=== PATIENT | female | born 1940 | race Caucasian/White ===

== ENCOUNTER → 2016-09-13 | Outpatient (CLI) | payer MEDICARE ==
--- NOTE | 2016-09-13 14:43 | REP ---
REASON: Low back pain. COMPARISON: None. There is partial syndesmophyte formation seen at every level bilaterally, but particularly L3-4 and L4-5. There is a grade 3 biconcave endplate deformity involving L3 with a superior endplate concave deformity seen involving L4 and L5 grade 1 and grade 2 respectively. Degenerative facet joint changes are seen at every level bilaterally. There is grade 1 L5 upon S1 spondylolisthesis. Due to the improper degree of obliquity obtained on the oblique views I cannot accurately assess for spondylolysis. I suspect the slight spondylolisthesis is secondary to degenerative facet joint change. The bones are demineralized. There is anterior lipping at every level. IMPRESSION: Chronic changes as described above. The age of the endplate compression fractures cannot be determined by this plain film exam. MRI would be necessary to search for marrow edema. Signed by Joshua Figueroa DO 09/14/2016 11:29 A
== END ==
LOC: M RAD 12:22
PROVIDERS: ATTEND Internal Medicine
DX: M25.78 Osteophyte, vertebrae (principal); M12.89 Other specific arthropathies, not elsewhere classified, multiple sites; M43.16 Spondylolisthesis, lumbar region; M54.5 Low back pain

== ENCOUNTER 2017-02-24 20:07 | Inpatient (IN) | payer MEDICARE ==
[2017-02-24 21:42] LABS: BASO % 0.1 % (0.0-1.0); EOS % 0.1 % (0.0-3.0); HEMATOCRIT 36.7 % (36.0-47.0); HEMOGLOBIN 12.4 g/dl (12.0-16.0); IMMATURE GRANULOCYTE % 0.4 % (0-0); LYMPH # 0.7 10^3/uL (1.5-4.5); LYMPH % 9.4 % (24.0-44.0); MEAN CORPUSCULAR HEMOGLOBIN 34.3 pg (27.0-33.0); MEAN CORPUSCULAR HGB CONC 33.8 g/dl (32.0-36.5); MEAN CORPUSCULAR VOLUME 101.4 fl (80.0-96.0); MONO # 0.5 10^3/uL (0.0-0.8); MONO % 6.3 % (0.0-5.0); NEUTROPHILS # 6.4 10^3/uL (1.8-7.7); NEUTROPHILS % 83.7 % (36.0-66.0); PLATELET COUNT, AUTOMATED 311 10^3/uL (150-450); RED BLOOD COUNT 3.62 10^6/uL (4.00-5.40); WHITE BLOOD COUNT 7.6 10^3/uL (4.0-10.0)
[2017-02-24 21:45] LABS: KETONE, URINE AUTO RFX TRACE mg/dL (NEGATIVE); MUCUS, URINE RFX SMALL (NEGATIVE); NITRITE, URINE AUTO RFX NEGATIVE (NEGATIVE); RBC, URINE AUTO RFX 3 /HPF (0-3); SPECIFIC GRAVITY UR AUTO RFX 1.021 (1.002-1.035); SQUAM EPITHELIAL CELL UR AURFX 0 /HPF (0-6); WBC, URINE AUTO RFX 2 /HPF (0-3)
[2017-02-24 21:46] LABS: LEUKOCYTE ESTERASE UR AUTO RFX TRACE (NEGATIVE)
[2017-02-24] MEDS: ONDANSETRON 4MG/2ML VIAL (J2405) IV (21:54)
[2017-02-24] MEDS: MORPHINE 2 MG/ML 1ML SYRINGE IV (21:54)
[2017-02-24 22:06] LABS: ANION GAP 10 MEQ/L (8-16); BLOOD UREA NITROGEN 34 MG/DL (7-18); CALCIUM LEVEL 10.4 MG/DL (8.8-10.2); CARBON DIOXIDE LEVEL 23 MEQ/L (21-32); CHLORIDE LEVEL 108 MEQ/L (98-107); CREATININE FOR GFR 1.48 MG/DL (0.55-1.02); GLOMERULAR FILTRATION RATE 36.3 (>39); GLUCOSE, FASTING 107 MG/DL (83-110); POTASSIUM SERUM 4.9 MEQ/L (3.5-5.1); SODIUM LEVEL 141 MEQ/L (136-145)
[2017-02-24] MEDS: NS 1,000 ML IV (23:33)
[2017-02-24] MEDS: LR 1,000 ML IV (23:47)
[2017-02-25] MEDS ORDERED: NORCO, ANEXSIA 5/325MG TABLET (HYDROcodone/ACETAMINOPHEN) PO
[2017-02-25] MEDS: MORPHINE 4 MG/ML 1ML SYRINGE IV ×4 (00:29→12:51)
[2017-02-25] MEDS ORDERED: ROCURONIUM BROMIDE 50 MG/5 ML VIAL As Ordered (09:04)
[2017-02-25] MEDS ORDERED: fentaNYL 250 MCG/5 ML INJECTION (J3010) As Ordered (09:04)
[2017-02-25] MEDS ORDERED: PROPOFOL 200 MG/20 ML VIAL As Ordered (09:04)
[2017-02-25] MEDS ORDERED: LIDOCAINE 2% INJ 100 MG/5 ML SDV (FOR ANES.) As Ordered (09:04)
[2017-02-25] MEDS ORDERED: MIDAZOLAM INJ 2 MG/2 ML VIAL (J2250) As Ordered (09:05)
[2017-02-25] MEDS ORDERED: PHENYLephrine HCL 500 MCG/5 ML (100MCG/ML) SYRINGE (J2370) As Ordered ×2 (10:06→11:44)
[2017-02-25] MEDS: BUPIVACAINE HCL 0.25% 30 ML VIAL As Ordered (10:15)
[2017-02-25] MEDS: ceFAZolin 2 GM/D5W 50 ML IV BAG (J0690 PER 500MG) As Ordered (10:15)
[2017-02-25] MEDS: LIDOCAINE 1% SDV INJ 30 ML VIAL As Ordered (10:44)
[2017-02-25] MEDS ORDERED: ONDANSETRON 4MG/2ML VIAL (J2405) As Ordered (11:09)
[2017-02-25] MEDS ORDERED: NEOSTIGMINE 10 MG/10 ML VIAL (J2710) As Ordered (11:09)
[2017-02-25] MEDS ORDERED: GLYCOPYRROLATE INJ 0.2 MG/ML 2 ML VIAL As Ordered (11:09)
[2017-02-25] MEDS ORDERED: ePHEDrine SULFATE 25 MG/5 ML(5MG/ML) SYRINGE As Ordered ×2 (11:44)
[2017-02-25] MEDS ORDERED: SUCCINYLCHOLINE 100 MG/5 ML SYRINGE (J0330) As Ordered (11:45)
[2017-02-25] MEDS ORDERED: fentaNYL 100 MCG/2 ML INJECTION (J3010) IV (12:00)
[2017-02-25] MEDS: LR 1,000 ML IV ×5 (12:00→20:19)
[2017-02-25] MEDS ORDERED: ONDANSETRON 4MG/2ML VIAL (J2405) IV (12:00)
[2017-02-25] MEDS: ATORVASTATIN 10 MG TAB PO (13:38)
[2017-02-25] MEDS: MULTIVITAMINS/MINERALS THERAP 1 TAB PO (13:38)
[2017-02-25] MEDS: ENOXAPARIN 30 MG/0.3 ML SYR (J1650) SC (17:12)
[2017-02-25] MEDS: LR 500 ML IV (17:28)
[2017-02-25] MEDS: CEPACOL LOZENGE PO (18:02)
[2017-02-26] MEDS: LR 1,000 ML IV (04:59)
[2017-02-26 05:42] LABS: HEMATOCRIT 28.5 % (36.0-47.0); MEAN CORPUSCULAR HEMOGLOBIN 33.6 pg (27.0-33.0); MEAN CORPUSCULAR HGB CONC 33.7 g/dl (32.0-36.5); MEAN CORPUSCULAR VOLUME 99.7 fl (80.0-96.0); PLATELET COUNT, AUTOMATED 242 10^3/uL (150-450); RED BLOOD COUNT 2.86 10^6/uL (4.00-5.40)
[2017-02-26 05:57] LABS: ANION GAP 6 MEQ/L (8-16); BLOOD UREA NITROGEN 19 MG/DL (7-18); CALCIUM LEVEL 8.5 MG/DL (8.8-10.2); CARBON DIOXIDE LEVEL 26 MEQ/L (21-32); CHLORIDE LEVEL 110 MEQ/L (98-107); CREATININE FOR GFR 0.98 MG/DL (0.55-1.02); GLOMERULAR FILTRATION RATE 58.4 (>39); GLUCOSE, FASTING 92 MG/DL (83-110); POTASSIUM SERUM 4.3 MEQ/L (3.5-5.1); SODIUM LEVEL 142 MEQ/L (136-145)
[2017-02-26 06:01] LABS: HEMOGLOBIN 9.6 g/dl (12.0-16.0)
[2017-02-26] MEDS: ATORVASTATIN 10 MG TAB PO (08:56)
[2017-02-26] MEDS: MULTIVITAMINS/MINERALS THERAP 1 TAB PO (08:56)
[2017-02-26] MEDS: NORCO, ANEXSIA 5/325MG TABLET (HYDROcodone/ACETAMINOPHEN) PO (08:57)
[2017-02-26] MEDS: ENOXAPARIN 30 MG/0.3 ML SYR (J1650) SC (08:57)
[2017-02-26] MEDS: INFLUENZA VIRUS VACCINE HIGH DOSE 0.5 ML SYRINGE (90662) IM (12:19)
[2017-02-27] MEDS: ACETAMINOPHEN TAB 650MG DOSE (2X325MG) PO (05:06)
[2017-02-27] MEDS: MULTIVITAMINS/MINERALS THERAP 1 TAB PO (08:11)
[2017-02-27] MEDS: ATORVASTATIN 10 MG TAB PO (08:11)
[2017-02-27] MEDS: ENOXAPARIN 30 MG/0.3 ML SYR (J1650) SC (08:12)
== END 2017-02-27 10:30 | disposition home or self-care (01) | DRG 352 ==
LOC: M ED INP 23:47 → M ED 20:07 → M MSPAV 02-25 12:36
PROC: 0YQ70ZZ Repair Right Femoral Region, Open Approach (ICD-10-PCS; principal; 2017-02-25 07:44)
DX: K41.30 Unilateral femoral hernia, with obstruction, without gangrene, not specified as recurrent (principal); I10 Essential (primary) hypertension; E78.00 Pure hypercholesterolemia, unspecified; Z79.899 Other long term (current) drug therapy

== ENCOUNTER → 2017-04-06 | Outpatient (CLI) | payer MEDICARE | LOC: M RAD 14:16 | DX: L76.34 Postprocedural seroma of skin and subcutaneous tissue following other procedure (principal); K41.90 Unilateral femoral hernia, without obstruction or gangrene, not specified as recurrent | CPT/HCPCS: 76857 ==

== ENCOUNTER 2017-07-01 18:32 | Emergency (ER) | payer MEDICARE ==
[2017-07-01] MEDS: GABAPENTIN 300 MG CAP PO (18:44)
== END 2017-07-01 19:55 | disposition home or self-care (01) ==
LOC: M ED 18:32
DX: M79.604 Pain in right leg (principal); M79.605 Pain in left leg; R21 Rash and other nonspecific skin eruption; I10 Essential (primary) hypertension; M54.5 Low back pain; M19.90 Unspecified osteoarthritis, unspecified site; Z79.899 Other long term (current) drug therapy
CPT/HCPCS: 93971

== ENCOUNTER → 2020-04-21 | Outpatient (CLI) | payer MEDICARE ==
[~2020-04-21] MED LIST: ACET650T61 PO; ATOR1TAB19; CALC1TAB30 PO; GABA-1171 PO; LISI10TA15 PO; LISINOP/HCTZ; TRAM50TA2 PO; VITMTA PO
--- NOTE | 2020-04-21 10:00 | REPMRS ---
Patient History The patient states she has not had a clinical breast exam in over a year. Patient is postmenopausal. Family history of breast cancer at age 57 in daughter, breast cancer at age 50 or over in brother. Digital Woman Screen Mammo: April 21, 2020 - Exam #: [id number] Bilateral CC and MLO view(s) were taken. Technologist: Snehal Duran, Technologist Prior study comparison: 2019, bilateral digital mammo screening bilat, performed at [facility]. March 29, 2018, bilateral digital mammo screening bilat, performed at [facility]. March 12, 2016, bilateral digital mammo screening bilat, performed at [facility]. FINDINGS: There are scattered fibroglandular densities. The Volpara volumetric breast density category is:B. There has been no change in the appearance of the mammogram from the prior studies. There is a mild amount of scattered fibroglandular density which is fairly symmetric. There is no interval development of dominant mass, architectural distortion, or grouped microcalcification suggestive of malignancy. 3-D tomosynthesis shows no additional findings. Assessment: BI-RADS/ACR category 1 mammogram. Negative Mammogram. Recommendation Routine screening mammogram of both breasts in 1 year (for women over age 40). This patient's [facility] Lifetime Breast Cancer Risk is estimated at 2.9 %. This mammogram was interpreted with the aid of an FDA-approved computer-aided dectection system. Electronically Signed By: Amrit Talbert MD 04/21/20 1000
== END ==
LOC: M WHC 09:07
PROVIDERS: ATTEND Internal Medicine
DX: Z12.31 Encounter for screening mammogram for malignant neoplasm of breast (principal)

== ENCOUNTER → 2021-06-12 | Outpatient (CLI) | payer MEDICARE ==
[~2021-06-12] MED LIST changes: -LISI10TA15 PO; +LISI10TA24 PO
[2021-06-12 12:52] LABS: BASO % 0.3 % (0.0-1.0); EOS # 0.4 10^3/uL (0.0-0.5); EOS % 6.5 % (0.0-3.0); HEMOGLOBIN 12.7 g/dl (12.0-15.5); LYMPH # 1.3 10^3/uL (1.5-5.0); LYMPH % 23.4 % (24.0-44.0); MEAN CORPUSCULAR HEMOGLOBIN 32.6 pg (27.0-33.0); MEAN CORPUSCULAR HGB CONC 32.6 g/dl (32.0-36.5); MONO # 0.6 10^3/uL (0.0-0.8); MONO % 10.8 % (2.0-8.0); NEUTROPHILS # 3.4 10^3/uL (1.5-8.5); NEUTROPHILS % 58.7 % (36.0-66.0); PLATELET COUNT, AUTOMATED 260 10^3/uL (150-450); WHITE BLOOD COUNT 5.7 10^3/uL (4.0-10.0)
[2021-06-12 13:34] LABS: ALBUMIN 3.2 GM/DL (3.2-5.2); ALT/SGPT 24 U/L (12-78); BILIRUBIN,TOTAL 0.5 MG/DL (0.2-1.0); BLOOD UREA NITROGEN 31 MG/DL (7-18); CALCIUM LEVEL 9.3 MG/DL (8.8-10.2); CARBON DIOXIDE LEVEL 33 MEQ/L (21-32); CHLORIDE LEVEL 104 MEQ/L (98-107); CREATININE FOR GFR 1.36 MG/DL (0.55-1.30); FOLATE 9.2 NG/ML; GLOMERULAR FILTRATION RATE 39.5 (>32); GLUCOSE, FASTING 86 MG/DL (70-100); POTASSIUM SERUM 4.3 MEQ/L (3.5-5.1); SODIUM LEVEL 142 MEQ/L (136-145); TOTAL 25(OH) VITAMIN D 76.1 NG/ML (30.0-100.0); VALPROIC ACID (DEPAKOTE) 67.5 UG/ML (50.0-100.0); VITAMIN B12 LEVEL > 2000 PG/ML
== END ==
LOC: M ADAMS 10:27
PROVIDERS: ATTEND Psychiatry & Neurology Neurology
DX: E53.8 Deficiency of other specified B group vitamins (principal); R51.9 Headache, unspecified; F02.81 Dementia in other diseases classified elsewhere, unspecified severity, with behavioral disturbance

== ENCOUNTER → 2021-07-27 | Outpatient (CLI) | payer MEDICARE | LOC: M WHC 11:34 | PROVIDERS: ATTEND Internal Medicine | DX: Z12.31 Encounter for screening mammogram for malignant neoplasm of breast (principal) ==

== ENCOUNTER 2022-04-17 12:33 | Emergency (ER) | payer MEDICARE ==
[~2022-04-17] VITALS: Ht 160 cm; Wt 52.3 kg
[2022-04-17 13:41] LABS: VENOUS BASE EXCESS 3.6 (-2.0-2.0); VENOUS HCO3 29.8 MEQ/L (23.0-27.0); VENOUS O2 SATURATION 68.1 % (60.0-80.0); VENOUS PARTIAL PRESSURE CO2 51.1 mmHg (38.0-50.0); VENOUS PARTIAL PRESSURE O2 36.9 mmHg (30.0-50.0); VENOUS PH 7.383 UNITS (7.330-7.430); VENOUS STANDARD HCO3 26.9 MEQ/L; VENOUS TOTAL CO2 31.3 MEQ/L (24.0-28.0)
[2022-04-17 13:45] LABS: BASO % 0.4 % (0.0-1.0); EOS # 0.2 10^3/uL (0.0-0.5); EOS % 3.5 % (0.0-3.0); HEMATOCRIT 41.2 % (36.0-47.0); HEMOGLOBIN 13.4 g/dl (12.0-15.5); LYMPH % 19.3 % (24.0-44.0); MEAN CORPUSCULAR HEMOGLOBIN 32.6 pg (27.0-33.0); MEAN CORPUSCULAR HGB CONC 32.5 g/dl (32.0-36.5); MEAN CORPUSCULAR VOLUME 100.2 fl (80.0-96.0); MONO # 0.6 10^3/uL (0.0-0.8); MONO % 11.4 % (2.0-8.0); NEUTROPHILS # 3.4 10^3/uL (1.5-8.5); PLATELET COUNT, AUTOMATED 210 10^3/uL (150-450); RED BLOOD COUNT 4.11 10^6/uL (4.00-5.40); WHITE BLOOD COUNT 5.2 10^3/uL (4.0-10.0)
[2022-04-17 14:14] LABS: ALBUMIN 2.7 G/DL (3.2-5.2); BILIRUBIN,DIRECT 0.2 MG/DL (<0.4); BILIRUBIN,TOTAL 0.4 MG/DL (0.3-1.2); GLOMERULAR FILTRATION RATE 56.2 (>32); POTASSIUM SERUM 4.2 MMOL/L (3.5-5.1); THYROID STIMULATING HORMONE 0.708 uIU/ML (0.55-4.78); TOTAL PROTEIN 6.3 G/DL (5.7-8.2)
[2022-04-17] MEDS ORDERED: NS 500 ML IV ONE (14:50)
[2022-04-17] MEDS ORDERED: OMEP-173 (15:37)
[2022-04-17] MEDS ORDERED: DIVA250T67 (15:37)
[2022-04-17] MEDS ORDERED: OLAN2.5T25 (15:37)
[2022-04-17] MEDS ORDERED: MEMA10TA19 (15:37)
[2022-04-17] MEDS ORDERED: ACETAMINOPHEN 325MG/10.15ML UDC PO ONE (15:45)
[2022-04-17] MEDS ORDERED: LIDOCAINE 2% 5ML JELLY UROJET TOP ONE (16:35)
[2022-04-17 17:30] VITALS: BP 113/58
== END 2022-04-17 17:59 | disposition home or self-care (01) ==
LOC: M ED 12:33
DX: E86.0 Dehydration (principal); F03.90 Unspecified dementia, unspecified severity, without behavioral disturbance, psychotic disturbance, mood disturbance, and anxiety; I10 Essential (primary) hypertension; E78.5 Hyperlipidemia, unspecified; Z79.899 Other long term (current) drug therapy

== ENCOUNTER → 2022-06-23 | Outpatient (CLI) | payer MEDICARE, MEDICAID ==
[~2022-06-23] MED LIST changes: +DIVA250T67; +MEMA10TA19; +OLAN2.5T25; +OMEP-173
[2022-06-23 14:33] LABS: HEMATOCRIT 39.1 % (36.0-47.0); MEAN CORPUSCULAR HEMOGLOBIN 33.7 pg (27.0-33.0); MEAN CORPUSCULAR HGB CONC 33.2 g/dl (32.0-36.5); MEAN CORPUSCULAR VOLUME 101.3 fl (80.0-96.0); PLATELET COUNT, AUTOMATED 345 10^3/uL (150-450); RED BLOOD COUNT 3.86 10^6/uL (4.00-5.40)
[2022-06-23 15:04] LABS: ALBUMIN 2.6 G/DL (3.2-5.2); BILIRUBIN,TOTAL 0.3 MG/DL (0.3-1.2); CALCIUM LEVEL 9.5 MG/DL (8.3-10.6); CHOLESTEROL RISK RATIO 2.63 (<5); CREATININE FOR GFR 0.96 MG/DL (0.55-1.30); GLOMERULAR FILTRATION RATE 58.9 (>32); HDL CHOLESTEROL 55.1 MG/DL (>40); LDL CHOLESTEROL 54.9 MG/DL (<100); NON-HDL-C 89.9 MG/DL; POTASSIUM SERUM 3.8 MMOL/L (3.5-5.1); TOTAL PROTEIN 6.6 G/DL (5.7-8.2)
[2022-06-23 15:05] LABS: THYROID STIMULATING HORMONE 0.568 uIU/ML (0.55-4.78)
== END ==
LOC: M LAB 12:52
PROVIDERS: ATTEND Internal Medicine
DX: R63.4 Abnormal weight loss (principal); E78.5 Hyperlipidemia, unspecified; R51.9 Headache, unspecified; Z51.81 Encounter for therapeutic drug level monitoring; Z79.899 Other long term (current) drug therapy

== ENCOUNTER → 2022-06-23 | Outpatient (CLI) | payer MEDICARE, MEDICAID | LOC: M LAB 12:56 | PROVIDERS: ATTEND Psychiatry & Neurology Neurology | DX: R51.9 Headache, unspecified (principal); Z51.81 Encounter for therapeutic drug level monitoring; Z79.899 Other long term (current) drug therapy ==

== ENCOUNTER 2022-07-25 21:18 | Emergency (ER) | payer MEDICARE, MEDICAID ==
[~2022-07-25] VITALS: Ht 152.4 cm; Wt 41.0 kg
[2022-07-25 21:45] VITALS: TEMP 98
[2022-07-25 21:53] LABS: BASO % 0.2 % (0.0-1.0); EOS # 0.1 10^3/uL (0.0-0.5); EOS % 1.1 % (0.0-3.0); HEMATOCRIT 43.8 % (36.0-47.0); HEMOGLOBIN 14.4 g/dl (12.0-15.5); LYMPH # 1.2 10^3/uL (1.5-5.0); LYMPH % 14.4 % (24.0-44.0); MEAN CORPUSCULAR HGB CONC 32.9 g/dl (32.0-36.5); MEAN CORPUSCULAR VOLUME 100.2 fl (80.0-96.0); MONO # 0.7 10^3/uL (0.0-0.8); MONO % 7.8 % (2.0-8.0); NEUTROPHILS # 6.4 10^3/uL (1.5-8.5); NEUTROPHILS % 76.1 % (36.0-66.0); PLATELET COUNT, AUTOMATED 320 10^3/uL (150-450); RED BLOOD COUNT 4.37 10^6/uL (4.00-5.40); WHITE BLOOD COUNT 8.4 10^3/uL (4.0-10.0)
[2022-07-25] MEDS ORDERED: ASPI81CH33 PO (21:56)
[2022-07-25 22:11] LABS: ALBUMIN 2.7 G/DL (3.2-5.2); BILIRUBIN,DIRECT 0.1 MG/DL (<0.4); BILIRUBIN,TOTAL 0.3 MG/DL (0.3-1.2); CALCIUM LEVEL 9.7 MG/DL (8.3-10.6); CREATININE FOR GFR 1.08 MG/DL (0.55-1.30); GLOMERULAR FILTRATION RATE 51.5 (>32); POTASSIUM SERUM 4.6 MMOL/L (3.5-5.1); TOTAL PROTEIN 6.7 G/DL (5.7-8.2)
[2022-07-25 22:13] LABS: THYROID STIMULATING HORMONE 1.959 uIU/ML (0.55-4.78)
[2022-07-25 22:14] LABS: RSV AMPLIFICATION NEGATIVE (NEGATIVE)
[2022-07-25 22:30] VITALS: BP 105/59; O2SAT 95
== END 2022-07-25 23:13 | disposition home or self-care (01) ==
LOC: M ED 21:18 → EDBD 21:18 → M ED 23:13
DX: R55 Syncope and collapse (principal); I10 Essential (primary) hypertension; E78.5 Hyperlipidemia, unspecified; F41.9 Anxiety disorder, unspecified; F32.A Depression, unspecified; F03.90 Unspecified dementia, unspecified severity, without behavioral disturbance, psychotic disturbance, mood disturbance, and anxiety; Z79.82 Long term (current) use of aspirin; Z79.899 Other long term (current) drug therapy